=== PATIENT | female | born 1995 | race African-American/Black ===

== ENCOUNTER 2025-03-24 09:29 | Emergency (ER) | payer OTHER, MEDICAID ==
[~2025-03-24] VITALS: Ht 160 cm; Wt 75.0 kg
[2025-03-24 09:44] VITALS: O2SAT 100
[2025-03-24 10:01] LABS: CLARITY URINE CLEAR (CLEAR); COLOR URINE YELLOW (YELLOW); GLUCOSE URINE NEGATIVE (NEGATIVE); KETONES URINE 1+ (NEGATIVE); LEUKOCYTE ESTERASE URINE NEGATIVE (NEGATIVE); NITRITE URINE NEGATIVE (NEGATIVE); OCCULT BLOOD URINE 3+ (NEGATIVE); PH URINE 5.5 (4.5-8.0); PROTEIN URINE TRACE (NEGATIVE); SPECIFIC GRAVITY URINE 1.025 (1.005-1.030)
[2025-03-24 10:15] LABS: BASOPHILS % 0.3 % (0.0-2.0); DIFFERENTIAL COMMENT 0; HEMATOCRIT. 36.5 % (36.0-48.0); HEMOGLOBIN. 11.7 g/dL (12.0-16.0); LYMPHOCYTES % 10.5 % (20.0-50.0); MEAN CORPUSCULAR HEMOGLOBIN 25.8 pg (28.0-32.0); MEAN CORPUSCULAR HGB CONC 32.1 g/dL (31.0-37.0); MEAN CORPUSCULAR VOLUME 80.2 fL (81.0-99.0); MEAN PLATELET VOLUME 9.6 fl (7.4-10.4); MONOCYTES % 2.6 % (2.0-8.0); NEUTROPHILS % 86.6 % (40.0-76.0); PLATELET 223 x1000/uL (130-400); RED BLOOD CELL COUNT 4.55 mill/uL (4.2-5.4); RED CELL DISTRIBUTION WIDTH 15.2 % (11.6-14.6); WHITE BLOOD COUNT 6.9 x1000/uL (4.5-11.0)
[2025-03-24 10:21] LABS: CHLORIDE 107 mEq/L (98-107); POTASSIUM 3.6 mEq/L (3.5-5.1); SODIUM 138 mEq/L (136-145)
[2025-03-24 10:23] LABS: CALCIUM 9.9 mg/dL (8.7-10.4); CARBON DIOXIDE 24 mEq/L (21-32)
[2025-03-24 10:28] LABS: CREATININE 0.9 mg/dL (0.6-1.0); GLUCOSE 110 mg/dL (70-105)
[2025-03-24 10:28] LABS: MUCUS URINE 2+ /lpf (< = 2+); RBC URINE 25-50 /hpf (0-2); SQUAMOUS EPITHELIAL CELL URINE 1+ /lpf (RARE/1+)
[2025-03-24] MEDS ORDERED: MAGNESIUM/ALUMINUM HYDROXIDE/SIMETHICONE 30ML UDC PO STA (10:28)
[2025-03-24] MEDS ORDERED: DICYCLOMINE 10 MG/5 ML ORAL SYR PO STA (10:28)
[2025-03-24] MEDS ORDERED: ONDANSETRON 4MG ODT PO STA (10:28)
[2025-03-24 10:29] LABS: BACTERIA URINE 2+; WBC URINE NONE SEEN /hpf (0-2)
[2025-03-24 10:29] LABS: UREA NITROGEN BLOOD 8 mg/dL (9-23)
[2025-03-24 10:30] LABS: ALANINE AMINOTRANSFERASE 11 IU/L (10-49); ALBUMIN 4.5 g/dL (3.2-4.8); ASPARTATE AMINOTRANSFERASE 17 IU/L (<34)
[2025-03-24 10:30] LABS: HCG SCREEN NEGATIVE
[2025-03-24] MEDS ORDERED: KETOROLAC 30MG/ML VIAL IM ONE (10:30)
[2025-03-24 10:31] LABS: BILIRUBIN DIRECT 0.2 mg/dL (<=3.0); BILIRUBIN TOTAL 0.7 mg/dL (0.1-1.0); PROTEIN TOTAL 8.2 g/dL (6.0-8.3)
[2025-03-24] MEDS: ONDANSETRON 4MG ODT PO NR (12:24)
[2025-03-24] MEDS: DICYCLOMINE HCL 10MG CAPSULE PO NR (12:25)
[2025-03-24] MEDS: MAGNESIUM/ALUMINUM HYDROXIDE/SIMETHICONE 30ML UDC PO NR (12:25)
[2025-03-24] MEDS: KETOROLAC 30MG/ML VIAL IM NR (12:25)
[2025-03-24] MEDS ORDERED: FAMO-135 MT (13:38)
[2025-03-24 13:50] VITALS: BP 119/73; PULSE 74; RESP 18; TEMP 36.8; O2SAT 100
== END 2025-03-24 13:53 | disposition home or self-care (01) ==
LOC: ER 09:29
DX: R10.12 Left upper quadrant pain (principal); Z79.899 Other long term (current) drug therapy
CPT/HCPCS: 99285; 74176; 76700; 80076; 80048; 81003; 81025; 84703; 83690; 85025; 36415; 96372; J1885; Q0162